=== PATIENT | female | born 1995 | race Caucasian/White ===

== ENCOUNTER → 2020-10-22 | Outpatient (CLI) | payer OTHER ==
[~2020-10-22] MED LIST: AZO BLADDER CO300 MG PO; Motrin,Rufen800 MG PO; PERCOCET 5-3251 EACH PO
== END | disposition home or self-care (01) ==
LOC: COVID19 12:37 → LAB 12:37
PROVIDERS: ATTEND Obstetrics & Gynecology
DX: Z11.52 Encounter for screening for COVID-19 (principal); E28.2 Polycystic ovarian syndrome; R10.2 Pelvic and perineal pain; N80.9 Endometriosis, unspecified; N94.10 Unspecified dyspareunia

== ENCOUNTER → 2020-10-29 | Outpatient (CLI) | payer OTHER | END | disposition home or self-care (01) | LOC: COVID19 11:51 | PROVIDERS: ATTEND Obstetrics & Gynecology | DX: Z01.812 Encounter for preprocedural laboratory examination (principal); Z11.52 Encounter for screening for COVID-19 ==

== ENCOUNTER → 2020-11-03 | Day surgery (SDC) | payer OTHER ==
[2020-10-22 12:54] VITALS: BP 126/88
[~2020-11-03] VITALS: Ht 160 cm; Wt 75.3 kg
[2020-11-03 08:32] VITALS: BP 121/72
[2020-11-03 10:40] VITALS: BP 111/37
[2020-11-03 10:55] VITALS: BP 105/49
[2020-11-03 11:07] VITALS: BP 108/57
[2020-11-03 11:25] VITALS: BP 103/62
[2020-11-03 11:40] VITALS: BP 104/62
== END ==
LOC: SDC 10-22 12:30
PROVIDERS: ATTEND Obstetrics & Gynecology
DX: E28.2 Polycystic ovarian syndrome (principal); G89.29 Other chronic pain; N80.0 Endometriosis of uterus; N94.10 Unspecified dyspareunia